=== PATIENT | male | born 1935 | race Caucasian/White ===

== ENCOUNTER 2017-03-24 15:00 | Emergency (ER) | payer OTHER ==
[~2017-03-24] VITALS: Ht 180.3 cm; Wt 68.3 kg
[~2017-03-24 15:00] MED LIST: ALBU-71 IH; CARV6.25 PO; DIGO0.121 PO; DONE10TA10 PO; FLUT1DSK2 IH; FORM1 IH; GABA300C PO; LOSA25TA14 PO; MEMA10TA PO; RIVA20TA PO; TIOT18CA2 IH
[2017-03-24 15:11] VITALS: BP 106/61
--- NOTE | 2017-03-24 17:56 | NUR ---
82/M PRESENT TO ER C/O HERNIA PAIN x TODAY. PAIN 8/10 DULL NON-RADIATING. PT STATES HE WAS TAKING OTC TYLENOL PRIOR TO ER VISIT. HX: LUNG CA 18 MONTHS AGO, HERNIA 18 MONTHS DENIES N/V/D; SKIN IS PINK/WARM/DRY; AAOX4 WITH EVEN AND STEADY GAIT; LUNGS CLEAR BL; HR EVEN AND REGULAR; PT DENIES ANY FEVER, CP, SOB, OR COUGH AT THIS TIME; PATIENT STATES PAIN OF 8/10 AT THIS TIME; VSS; PATIENT POSITIONED FOR COMFORT; HOB ELEVATED; BEDRAILS UP X2; BED DOWN. ER MD MADE AWARE OF PT STATUS.
[2017-03-24 18:39] LABS: BASOPHILS # (AUTO) 0.1 K/uL (0.00-0.22); EOSINOPHILS # (AUTO) 0.2 K/uL (0-0.4); EOSINOPHILS % (AUTO) 3.2 % (0.0-4.0); HEMATOCRIT 30.8 % (36-52); HEMOGLOBIN 9.9 g/dL (12.0-18.0); LYMPHOCYTES # (AUTO) 0.7 K/uL (2.0-11.5); MEAN CORPUSCULAR HEMOGLOBIN 27 pg (27-31); MEAN CORPUSCULAR HGB CONC 32 g/dL (33-37); MEAN CORPUSCULAR VOLUME 84 fL (80-94); MONOCYTES # (AUTO) 0.5 K/uL (0.8-1.0); MONOCYTES % (AUTO) 7.3 % (1.7-9.3); NEUTROPHILS # (AUTO) 4.7 K/uL (1.8-7.7); NEUTROPHILS % (AUTO) 77.5 % (42.2-75.2); PLATELET COUNT (AUTO) 156 K/uL (140-450); RED BLOOD CELL COUNT(AUTO) 3.68 MIL/uL (4.20-6.10); RED CELL DISTRIBUTION WIDTH 14.4 % (11.6-13.7); WHITE BLOOD COUNT (AUTO) 6.2 K/uL (4.8-10.8)
--- NOTE | 2017-03-24 18:58 | NUR ---
Patient discharged with v/s stable. Written and verbal after care instructions given and explained. Patient alert, oriented and verbalized understanding of instructions. Ambulatory with to car. All questions addressed prior to discharge. ID band removed. Patient advised to follow up with PMD. Rx of PERCOCET given. Patient educated on indication of medication including possible reaction and side effects. Opportunity to ask questions provided and answered.
[2017-03-24 18:59] VITALS: BP 124/72
[2017-03-24 19:17] LABS: ANION GAP 12.8 (8-16); ASPARTATE AMINOTRANSFERASE 15 U/L (15-37); CARBON DIOXIDE 31.6 mmol/L (21-32); CHLORIDE 105 mmol/L (98-107); CREATININE 1.2 mg/dL (0.7-1.3); GLUCOSE 101 mg/dL (74-106); POTASSIUM 4.4 mmol/L (3.5-5.1); SODIUM SERUM 145 mmol/L (136-145); TOTAL BILIRUBIN 1.1 mg/dL (0.0-1.0); UREA NITROGEN, BLOOD 30 mg/dL (7-18)
[2017-03-24 19:18] LABS: ALBUMIN 3.3 g/dL (3.4-5.0)
== END 2017-03-24 18:59 | disposition home or self-care (01) ==
LOC: MED 15:00
DX: K40.90 Unilateral inguinal hernia, without obstruction or gangrene, not specified as recurrent (principal); C34.90 Malignant neoplasm of unspecified part of unspecified bronchus or lung; Z88.6 Allergy status to analgesic agent; Z88.5 Allergy status to narcotic agent; Z88.2 Allergy status to sulfonamides; J44.9 Chronic obstructive pulmonary disease, unspecified; I10 Essential (primary) hypertension
CPT/HCPCS: 36415; 80053; 83605; 84484; 85025; 85610; 85730; 99285

== ENCOUNTER 2017-03-25 17:20 | Inpatient (IN) | payer OTHER ==
[~2017-03-25] VITALS: Ht 177.8 cm; Wt 70.3 kg
[2017-03-25 17:24] VITALS: BP 143/109
--- NOTE | 2017-03-25 17:27 | NUR ---
Patient ambulated to bed 04.
--- NOTE | 2017-03-25 17:53 | NUR ---
Dr. Lugo evaluating patient at bedside.
--- NOTE | 2017-03-25 17:58 | NUR ---
XRAY at bedside.
--- NOTE | 2017-03-25 18:00 | NUR ---
PT BIB FAMILY FOR EVALUATION OF SOB AND URINARY RETENTION. HX OF CA, COPD, INGUINAL HERNIA. PT STATES HE GOT LOWER ABDOMINAL PAIN. DENIES N/V/D; SKIN IS PINK/WARM/DRY; AAOX4 WITH EVEN AND STEADY GAIT; LUNGS CLEAR BL; HR EVEN AND REGULAR; PT DENIES ANY FEVER, CP OR COUGH AT THIS TIME; PATIENT POSITIONED FOR COMFORT; HOB ELEVATED; BEDRAILS UP X2; BED DOWN. ALL MONITORS IN PLACED;ER MD MADE AWARE OF PT STATUS.
[2017-03-25 18:06] LABS: BASOPHILS # (AUTO) 0.1 K/uL (0.00-0.22); BASOPHILS % (AUTO) 0.7 % (0.0-2.0); EOSINOPHILS # (AUTO) 0.1 K/uL (0-0.4); EOSINOPHILS % (AUTO) 1.6 % (0.0-4.0); HEMATOCRIT 30.6 % (36-52); LYMPHOCYTES # (AUTO) 0.6 K/uL (2.0-11.5); LYMPHOCYTES % (AUTO) 6.9 % (20.5-51.1); MEAN CORPUSCULAR HEMOGLOBIN 27 pg (27-31); MEAN CORPUSCULAR HGB CONC 33 g/dL (33-37); MEAN CORPUSCULAR VOLUME 84 fL (80-94); MONOCYTES # (AUTO) 0.5 K/uL (0.8-1.0); MONOCYTES % (AUTO) 5.6 % (1.7-9.3); NEUTROPHILS # (AUTO) 7.1 K/uL (1.8-7.7); NEUTROPHILS % (AUTO) 85.2 % (42.2-75.2); PLATELET COUNT (AUTO) 146 K/uL (140-450); RED BLOOD CELL COUNT(AUTO) 3.66 MIL/uL (4.20-6.10); RED CELL DISTRIBUTION WIDTH 14.7 % (11.6-13.7); WHITE BLOOD COUNT (AUTO) 8.4 K/uL (4.8-10.8)
--- NOTE | 2017-03-25 18:27 | NUR ---
PER DAUGHTER,PATIENT BEEN HAVING BLOODY URINE X1 WEEK AND DIFFICULTY VOIDING. PROSTATE OPERATION LAST NOVEMBER . ATTEMPTED TO INSERT FLEMING CATH. WITH DIFFICULTY AND HESITATION WITH SMALL BLEEDING/CLOTS. ERMD MADE AWARE
[2017-03-25 18:29] LABS: PROTHROMBIN TIME 16.5 secs (10.8-13.4)
[2017-03-25 18:46] LABS: ALBUMIN 3.6 g/dL (3.4-5.0); ANION GAP 12.8 (8-16); ASPARTATE AMINOTRANSFERASE 21 U/L (15-37); CARBON DIOXIDE 28.8 mmol/L (21-32); CHLORIDE 103 mmol/L (98-107); CREATININE 1.1 mg/dL (0.7-1.3); GLUCOSE 116 mg/dL (74-106); POTASSIUM 4.6 mmol/L (3.5-5.1); SODIUM SERUM 140 mmol/L (136-145); UREA NITROGEN, BLOOD 40 mg/dL (7-18)
--- NOTE | 2017-03-25 19:00 | NUR ---
DR. LANE ATTEMPTED TO INSERT FLEMING CATH.WITH DIFFICULTY/HESITATION. WILL CONSULT UROLOGIST.
[2017-03-25] MEDS ORDERED: LEVOFLOXACIN 750 MG/D5W PREMIX 150 ML IV ONE (19:25)
--- NOTE | 2017-03-25 19:28 | NUR ---
DR. LANE SPOKE TO PATIENT AND DAUGHTER RE: URO. CONSULT
--- NOTE | 2017-03-25 19:38 | NUR ---
Pt report given to ABDIAS ROOT. Transfer of care at this time.
--- NOTE | 2017-03-25 19:40 | NUR ---
GOT REPORT FROM ABDIAS HATCH. PT. RESTING IN BED, NO S/SX OF DISTRESS AT THIS TIME.
[2017-03-25] MEDS ORDERED: MORPHINE SULFATE 4 MG/ML SYR IVP ONE (20:05)
[2017-03-25] MEDS ORDERED: NACL 0.9% 1,000 ML IV SCH (20:09)
[2017-03-25] MEDS ORDERED: DOCUSATE SODIUM 100 MG GELCAP PO PRN (20:10)
[2017-03-25] MEDS ORDERED: ONDANSETRON 4 MG/2 ML VIAL IM/IVP PRN (20:10)
[2017-03-25] MEDS ORDERED: MORPHINE SULFATE 2 MG/ML SYR IVP PRN (20:10)
--- NOTE | 2017-03-25 20:40 | NUR ---
HOLD THE PT. AT ER AWAITING FOR ROOM AVAILABLE.
--- NOTE | 2017-03-25 20:42 | NUR ---
ARRIVED TO GIVE HHN AND PATIENT STILL IN ER. MENTIONED TO DR. LYLE THAT BID TREATMENTS ARE GIVEN AT 0700 AND 1900, HE STATED HE WILL CHANGE THE ORDER
[2017-03-25] MEDS ORDERED: NON-FORMULARY ITEM (Mometasone/Formoterol (Dulera 200 Mcg/5 Mcg Inhaler) 2 PUFF) IH SCH (21:00)
[2017-03-25] MEDS ORDERED: GABAPENTIN 300 MG CAP PO SCH (21:00)
[2017-03-25] MEDS ORDERED: ALBUTEROL 0.083% 2.5 MG/3 ML NEBU INH SCH (21:00)
[2017-03-25] MEDS ORDERED: DONEPEZIL 10 MG TAB PO SCH (21:00)
[2017-03-25] MEDS ORDERED: NON-FORMULARY ITEM (Fluticasone/Salmeterol* (Advair 250-50 Diskus*) 1 PUFF) IH SCH (21:00)
--- NOTE | 2017-03-25 22:20 | NUR ---
Patient will be admitted to care of DR. HUERTA. Admited to TELEMETRY. Will go to [id number]. Belongings list completed. Report to ABDIAS ALCAZAR.
--- NOTE | 2017-03-25 23:00 | NUR ---
PT ARRIVED TO [facility] [[email or web address] VIA GURNEY FROM ER. PT IS AWAKE AND ALERT, ORIENTED X4. DAUGHTER IS AT THE BEDSIDE. SHOWING NO SIGN SOF ACUTE DISTRESS. URINAL AT THE BEDSIDE. IV ACCESS ASYMPTOMATIC AND PATENT. ON 02 2L VIA MT, AMBULATORY WITH ASSISTIVE DEVICE, WALKER AT THE BEDSIDE. PLAN OF CARE DISCUSSED, PT VERBALIZED UNDERSTANDING. BED ON LOW POSITION, BILATERAL HALF SIDE RAILS UP, CALL LIGHT WITH IN REACH, WILL CONTINUE TO MONITOR.
[2017-03-25 23:15] VITALS: BP 121/73
[2017-03-25] MEDS: CARVEDILOL 6.25 MG TAB PO SCH (23:20)
--- NOTE | 2017-03-25 23:21 | NUR ---
PT AND PT DAUGHTER ESTRELLITA REFUSED MEDICATION, DAUGHTER STATES GABAPENTIN 300MG HAD ALREADY BEEN GIVEN AT 0800 PM WITH PT OWN MEDICATION, DID NOT ADMINISTER ANOTHER DOSE DUE TO IT BEING TO CLOSE IN TIME. BENEFITS AND RISKS EXPLAINED, PT REFUSED.
[2017-03-25 23:25] LABS: APPEARANCE,URINE TURBID (CLEAR); BILIRUBIN,URINE 2+ (NEGATIVE); BLOOD, URINE 3+ (NEGATIVE); COLOR,URINE RED (YELLOW); LEUKOCYTE ESTERASE ,URINE 3+ (NEGATIVE); NITRITE, URINE POSITIVE (NEGATIVE); PH,URINE 7.5 (5.0-9.0); UGLUCOSE TRACE (NEGATIVE)
[2017-03-25 23:26] LABS: CHOL/HDL RATIO 3.1 (1-4.5); FREE T4 (FREE THYROXINE) 1.19 ng/dL (0.76-1.46); MAGNESIUM 1.8 mg/dL (1.8-2.4); PHOSPHORUS 3.3 mg/dL (2.5-4.9); THYROID STIMULATING HORMONE 1.64 uIU/mL (0.34-3.74)
[2017-03-26 00:06] LABS: RBC,URINE TOO NUMEROUS TO COUN /HPF (0-5); WBC,URINE TOO MANY TO COUNT /HPF (0-5)
--- NOTE | 2017-03-26 02:20 | NUR ---
PT COMPLAINING OF BURNING FEELING WHEN TRYING TO URINATE. DR WARD MADE AWARE OF PT SYMPTOMS, PER DR WARD ADMINISTER ATIVAN. NOTED, WILL CARRY OUT.
[2017-03-26] MEDS ORDERED: LORazepam 1 MG TAB PO SCH (03:25)
[2017-03-26] MEDS ORDERED: ALBUTEROL SULFATE/IPRATROPIU 3 ML SOL IH PRN (03:40)
[2017-03-26 04:00] VITALS: BP 138/76
--- NOTE | 2017-03-26 04:11 | NUR ---
PT IS COMPLAINING OF PAIN AND BURNING WHEN TRYING TO URINATE, PT IS STILL UNABLE TO URINATE. DR WARD NOTIFIED OF PT SYMPTOMS. PER DR WARD, ORDER TO DO A BLADDER SCAN.
--- NOTE | 2017-03-26 04:13 | NUR ---
BLADDER SCAN RESULTS, 706 ML.
--- NOTE | 2017-03-26 04:40 | NUR ---
PT COMPLAIN OF BLADDER PAIN WITH BURNING SENSATION. DR. WARD MADE AWARE, AND ORDERED MORPHINE TO BE GIVEN. MORPHINE HAS BEEN GIVEN TO MANAGE PAIN. PT TOLERATED WELL. WILL CONTINUE TO MONITOR.
--- NOTE | 2017-03-26 05:30 | NUR ---
UROLOGIST, DR MCCLURE IS WITH PT IN THE ROOM FOR CONSULT.
[2017-03-26] MEDS ORDERED: LIDOCAINE 1% 500 MG/50 ML VIAL INJ SCH (05:50)
[2017-03-26] MEDS ORDERED: LIDOCAINE 1% 50 ML ONE (05:59)
[2017-03-26 06:30] LABS: HEMATOCRIT 29.2 % (36-52); HEMOGLOBIN 9.5 g/dL (12.0-18.0); MEAN CORPUSCULAR HEMOGLOBIN 27 pg (27-31); MEAN CORPUSCULAR HGB CONC 33 g/dL (33-37); MEAN CORPUSCULAR VOLUME 84 fL (80-94); PLATELET COUNT (AUTO) 127 K/uL (140-450); RED BLOOD CELL COUNT(AUTO) 3.48 MIL/uL (4.20-6.10); RED CELL DISTRIBUTION WIDTH 14.6 % (11.6-13.7); WHITE BLOOD COUNT (AUTO) 8.2 K/uL (4.8-10.8)
[2017-03-26 06:43] LABS: ANION GAP 12.3 (8-16); CARBON DIOXIDE 27.7 mmol/L (21-32); CHLORIDE 104 mmol/L (98-107); CREATININE 1.1 mg/dL (0.7-1.3); GLUCOSE 87 mg/dL (74-106); SODIUM SERUM 140 mmol/L (136-145)
[2017-03-26] MEDS ORDERED: ALBUTEROL 0.083% 2.5 MG/3 ML NEBU INH SCH (07:12)
[2017-03-26 07:26] LABS: UREA NITROGEN, BLOOD 33 mg/dL (7-18)
[2017-03-26 08:00] VITALS: BP 154/99
--- NOTE | 2017-03-26 08:00 | NUR ---
RECEIVED REPORT FROM ABDIAS ALCAZAR. PATIENT ALERT AWAKE ORIENTED X4, NOT IN ACUTE DISTRESS NOTED. VITALS TAKEN. OBSERVED NPO FOR PROCEDURE TODAY. MD AT BEDSIDE. C/O OF LOWER ABDOMINAL PAIN, MEDICATED BY ABDIAS ALCAZAR. WILL CONTINUE TO MONITOR.
[2017-03-26 08:15] LABS: EOSINOPHILS % (MANUAL) 2 % (0-4); LYMPHOCYTES % (MANUAL) 3 % (20-46); MONOCYTES % (MANUAL) 2 % (5-12)
--- NOTE | 2017-03-26 08:27 | NUR ---
DR. MCCLURE, JOSE AND OR NURSE CAME AND EXPLAINED PROCEDURE TO PT.. DR. MCCLURE SPOKE TO RESIDENTS MD ON BEDSIDE.
--- NOTE | 2017-03-26 08:30 | NUR ---
PATIENT OFF FLOOR, WENT TO SURGERY, IN STABLE CONDITION.
--- NOTE | 2017-03-26 08:30 | NUR ---
Patient's Plan of Care was discussed and reviewed with REGIONAL BUSINESS DEVELOPMENT MANAGER: BERENICE
[2017-03-26] MEDS ORDERED: SEVOFLURANE 250 ML BTL INH ONE (08:45)
[2017-03-26] MEDS ORDERED: fentaNYL 0.05 MG/ML VIAL ONE (08:58)
[2017-03-26] MEDS ORDERED: MIDAZOLAM 2 MG/2 ML VIAL ONE (08:58)
[2017-03-26] MEDS ORDERED: MEMANTINE 10 MG TAB PO SCH (09:00)
[2017-03-26] MEDS ORDERED: RIVAROXABAN 10 MG TAB PO SCH (09:00)
[2017-03-26] MEDS: CARVEDILOL 6.25 MG TAB PO SCH (09:00)
[2017-03-26] MEDS ORDERED: TIOTROPIUM BROMIDE IH SCH (09:00)
[2017-03-26] MEDS ORDERED: LACTOBACILLUS RHAMNOSUS GG 1 EACH CAP PO SCH (09:00)
[2017-03-26] MEDS ORDERED: LOSARTAN 25 MG TAB PO SCH (09:00)
[2017-03-26] MEDS ORDERED: DIGOXIN 0.125 MG TAB PO SCH (09:00)
[2017-03-26] MEDS ORDERED: NACL 0.9% 1,000 ML IV SCH (09:48)
[2017-03-26] MEDS ORDERED: diphenhydrAMINE 50 MG/ML VIAL IVP PRN (09:50)
[2017-03-26] MEDS ORDERED: ONDANSETRON 4 MG/2 ML VIAL IVP PRN (09:50)
--- NOTE | 2017-03-26 10:02 | NUR ---
PATIENT HAS BEEN SCREENED AND CATEGORIZED HIGH NUTRITION RISK. PATIENT WILL BE SEEN WITHIN 1-2 DAYS OF ADMISSION. 03/26/17-03/27/[address]
--- NOTE | 2017-03-26 10:20 | NUR ---
BACK FROM OR VIA GURNEY. AWAKE, ALERT, AND ORIENTED X4. NO C/O PAIN. EXPLAINED POST-OP CARE, PAIN MANAGEMENT TEACHING, USE OF CALL LIGHT/BED/TV/BATHROOM. VERBALIZED UNDERSTANDING. CALL LIGHT WITHIN REACH.
[2017-03-26 10:30] VITALS: BP 103/65
[2017-03-26 11:00] VITALS: BP 112/76
--- NOTE | 2017-03-26 11:20 | NUR ---
FAXED INITIAL REVIEW TO [facility], IPA [phone] PHONE IBETH [phone]. I SPOKE WITH IBETH AND GAVE VERBAL REPORT ALSO. SHE ASKED IF PATIENT IS STABLE FOR TRANSFER TO [facility]. I CALLED DR. STEWART AND SHE WILL LET ME KNOW.
--- NOTE | 2017-03-26 11:20 | NUR ---
DR. STEWART WENT INSIDE PT. ROOM AND SPOKE TO PT. AND PT. DAUGHTER -LINDSAY.
[2017-03-26] MEDS ORDERED: [UNRECOGNIZED DRUG - CODE] IV (11:50)
[2017-03-26] MEDS ORDERED: DEXT150S13 IV (11:50)
[2017-03-26] MEDS ORDERED: LACT10CA PO (11:50)
[2017-03-26] MEDS ORDERED: TAMS0.4C96 PO (11:51)
[2017-03-26 12:00] VITALS: BP 103/58
[2017-03-26] MEDS ORDERED: CLINDAMYCIN 600 MG in DEXTROSE 5% 50 ML IV SCH (12:00)
--- NOTE | 2017-03-26 13:05 | NUR ---
03/26/17 RD INITIAL ASSESSMENT COMPLETED PLEASE REFER TO NUTRITION ASSESSMENT UNDER CARE ACTIVITY FOR ESTIMATED NUTRITIONAL NEEDS. 1. CONTINUE CARDIAC DIET 2. RD TO FOLLOW-UP 2-3 DAYS, HIGH RISK [address]
--- NOTE | 2017-03-26 14:28 | NUR ---
RECEIVED A CALL FROM HILDA RUIZ CM FROM [facility]. THE PATIENT WILL TO [facility] [address] [place] [address] OLSON[address] ROOM 3319 CALL REPORT TO [phone]. TRANSPORT WITH [facility]. SANDRA [id number] SB. PATIENT TO GO TO TELE BED. DR. STEWART AWARE. SUNITA CALEROPHOTOGRAMMETRIC ENGINEER NURSE AWARE.
--- NOTE | 2017-03-26 14:30 | NUR ---
EXPLAINED PT. AND ABOUT MD D/C ORDER, D/C INSTRUCTIONS AND TEACHING, DIAGNOSIS, PAIN MANAGEMENT TEACHING, 3 WAY FLEMING IRRIGATION, SUPRAPUBIC CATHETER CARE, PAIN MANAGEMENT TEACHING, MD FOLLOW-UP, MD PRESCRIPTION LIST EDUCATION, DIET. VERBALIZED UNDERSTANDING.
--- NOTE | 2017-03-26 14:50 | NUR ---
CALLED PT. DAUGHTER -LINDSAY AND INFORMED OF PT. TRANSFER TO [facility] PER MD ORDER. PT. DAUGHTER -LINDSAY VERBALIZED UNDERSTANDING.
--- NOTE | 2017-03-26 16:10 | NUR ---
D/C VIA GURNEY WITH [facility]. AWAKE, ALERT, AND ORIENTED X4. IN STABLE CONDITION. ENDORSED TO [facility] ABOUT [address] FLEMING CATHETER CONTINUOS IRRIGATION. INFORMED CHARGE NURSE ROSALBA IRVING.
[2017-03-26 18:00] VITALS: BP 103/63
== END 2017-03-26 16:10 | disposition short-term general hospital (02) | DRG 871 ==
LOC: MED 17:20 → MTU 20:01
PROVIDERS: ADMIT Family Medicine Sports Medicine; ATTEND Family Medicine Sports Medicine
PROC: 0TCB8ZZ Extirpation of Matter from Bladder, Via Natural or Artificial Opening Endoscopic (ICD-10-PCS; principal; 2017-03-26 09:00)
DX: A41.9 Sepsis, unspecified organism (principal); N17.0 Acute kidney failure with tubular necrosis; J69.0 Pneumonitis due to inhalation of food and vomit; F03.90 Unspecified dementia, unspecified severity, without behavioral disturbance, psychotic disturbance, mood disturbance, and anxiety; C34.11 Malignant neoplasm of upper lobe, right bronchus or lung; N39.0 Urinary tract infection, site not specified; J44.1 Chronic obstructive pulmonary disease with (acute) exacerbation; D64.9 Anemia, unspecified; I10 Essential (primary) hypertension; I48.91 Unspecified atrial fibrillation; R33.9 Retention of urine, unspecified; Z96.659 Presence of unspecified artificial knee joint; N40.0 Benign prostatic hyperplasia without lower urinary tract symptoms; R31.9 Hematuria, unspecified; F17.200 Nicotine dependence, unspecified, uncomplicated; Z85.118 Personal history of other malignant neoplasm of bronchus and lung; Z88.6 Allergy status to analgesic agent; Z88.2 Allergy status to sulfonamides; Z88.8 Allergy status to other drugs, medicaments and biological substances
CPT/HCPCS: 36415; 71010; 76770; 80048; 80053; 81001; 82150; 83036; 83605; 83690; 83735; 83880; 84100; 84436; 84439; 84443; 84479; 84484; 85025; 85610; 85730; 87040; 87081; 87086; 93005; 96365; 96375; 99285; C1758; C1769; J1956; J2001; J2250; J2270; J3010; J3490; J7030; J7060; J7613; Q0092; Q0163

== ENCOUNTER 2017-05-12 13:07 | Inpatient (IN) | payer OTHER ==
[~2017-05-12] VITALS: Ht 180.3 cm; Wt 72.6 kg
[~2017-05-12 13:07] MED LIST changes: +DEXT150S13 IV; +LACT10CA PO; +TAMS0.4C96 PO; +[UNRECOGNIZED DRUG - CODE] IV
[2017-05-12 13:25] VITALS: BP 135/71
--- NOTE | 2017-05-12 13:40 | NUR ---
82/M BIB DAUGHTER FROM [facility] C/O R KNEE SWELLING & REDNESS X 2 WKS.HX OF DEMENTIA,,COPD, AFIB, PROSTATE PROBLEM RETAINED CATH; URINE CLOUDY,JALIL KNEE REPALCEMENT. DENIES N/V/D; AAOX4 WITH EVEN AND UNSTEADY GAIT, AMB WITH WALKER.; LUNGS CLEAR BL; PT DENIES ANY FEVER, CP, SOB, OR COUGH AT THIS TIME; PATIENT STATES PAIN OF 8/10 AT THIS TIME; PATIENT POSITIONED FOR COMFORT; R LEG ELEVATED, BEDRAILS UP X2; ER MD MADE AWARE OF PT STATUS.
[2017-05-12] MEDS ORDERED: cefTRIAXone 1,000 MG VIAL ONE (14:55)
[2017-05-12] MEDS ORDERED: ONDANSETRON 4 MG/2 ML VIAL IVP PRN (14:55)
[2017-05-12 15:15] LABS: BASOPHILS # (AUTO) 0.1 K/uL (0.00-0.22); BASOPHILS % (AUTO) 0.8 % (0.0-2.0); EOSINOPHILS # (AUTO) 0.1 K/uL (0-0.4); EOSINOPHILS % (AUTO) 1.4 % (0.0-4.0); HEMOGLOBIN 10.4 g/dL (12.0-18.0); LYMPHOCYTES # (AUTO) 0.4 K/uL (2.0-11.5); LYMPHOCYTES % (AUTO) 5.8 % (20.5-51.1); MEAN CORPUSCULAR HEMOGLOBIN 27 pg (27-31); MEAN CORPUSCULAR HGB CONC 32 g/dL (33-37); MEAN CORPUSCULAR VOLUME 84 fL (80-94); MONOCYTES # (AUTO) 0.6 K/uL (0.8-1.0); MONOCYTES % (AUTO) 7.8 % (1.7-9.3); NEUTROPHILS % (AUTO) 84.2 % (42.2-75.2); PLATELET COUNT (AUTO) 104 K/uL (140-450); RED BLOOD CELL COUNT(AUTO) 3.83 MIL/uL (4.20-6.10); RED CELL DISTRIBUTION WIDTH 17.3 % (11.6-13.7); WHITE BLOOD COUNT (AUTO) 7.2 K/uL (4.8-10.8)
--- NOTE | 2017-05-12 15:25 | NUR ---
Patient will be admitted to care of DR RUIZ. Admited to TELE. Will go to room 121A. Belongings list completed. Report to ABDIAS WU.
[2017-05-12 15:30] LABS: ANION GAP 9.3 (8-16); CARBON DIOXIDE 31.2 mmol/L (21-32); CHLORIDE 105 mmol/L (98-107); CREATININE 1.1 mg/dL (0.7-1.3); GLUCOSE 135 mg/dL (74-106); POTASSIUM 4.5 mmol/L (3.5-5.1); SODIUM SERUM 141 mmol/L (136-145); UREA NITROGEN, BLOOD 24 mg/dL (7-18)
[2017-05-12 15:36] LABS: ALBUMIN 3.3 g/dL (3.4-5.0); ASPARTATE AMINOTRANSFERASE 24 U/L (15-37); TOTAL BILIRUBIN 1.9 mg/dL (0.0-1.0)
[2017-05-12 15:38] VITALS: BP 127/61
--- NOTE | 2017-05-12 15:38 | NUR ---
RECEIVED PT FROM ER. AWAKE. ALERT ORIENTEDX4. ASSISTED BY ER STAFF. TRANSFERRED TO BED SAFELY AND COMFORTABLY. NO SOB NOTED. DENIES ANY PAIN OR DISCOMFORT AT THIS TIME. PT ON BEDREST. SCARS ON BOTH RIGHT AND LEFT KNEE NOTED. PT ON BEDREST. FLEMING CATHETER IN PLACE. NO OUTPUT NOTED ON DRAINAGE BAG. SAFETY PRECAUTION IN PLACE. CALL LIGHT WITHIN REACH.
[2017-05-12 15:40] LABS: PROTHROMBIN TIME 15.1 secs (10.8-13.4)
[2017-05-12 15:58] LABS: APPEARANCE,URINE SL CLOUDY (CLEAR); BILIRUBIN,URINE NEGATIVE (NEGATIVE); BLOOD, URINE 3+ (NEGATIVE); COLOR,URINE YELLOW (YELLOW); LEUKOCYTE ESTERASE ,URINE 2+ (NEGATIVE); NITRITE, URINE POSITIVE (NEGATIVE); UGLUCOSE NEGATIVE (NEGATIVE)
[2017-05-12 15:58] LABS: CHOL/HDL RATIO 2.6 (1-4.5); FREE T4 (FREE THYROXINE) 1.23 ng/dL (0.76-1.46); PHOSPHORUS 3.1 mg/dL (2.5-4.9); THYROID STIMULATING HORMONE 1.87 uIU/mL (0.34-3.74)
[2017-05-12] MEDS: NACL 0.9% 1,000 ML IV SCH (16:11)
--- NOTE | 2017-05-12 17:05 | NUR ---
DR GRAHAM CAME TO SEE PT AND DISCUSSED WITH DAUGHTER ESTRELLITA REGARDING CODE STATUS. PER DAUGHTER NO CHESTY COMPRESSIONS, NO INTUBATION, OK TO SHOCK, OK TO BIPAP.
[2017-05-12 17:24] LABS: RBC,URINE 20-50 /HPF (0-5); WBC,URINE TOO MANY TO COUNT /HPF (0-5)
[2017-05-12] MEDS ORDERED: ALBUTEROL SULFATE/IPRATROPIU 3 ML SOL IH PRN (17:25)
[2017-05-12] MEDS ORDERED: IPRATROPIUM 0.02% 0.5 MG/2.5 ML NEBU INH PRN (17:25)
[2017-05-12] MEDS ORDERED: ALBUTEROL 0.083% 2.5 MG/3 ML NEBU INH PRN (17:25)
[2017-05-12] MEDS ORDERED: oxyCODONE/APAP 5/325 MG 1 TAB TAB PO PRN (17:55)
[2017-05-12] MEDS ORDERED: ASCO500T45 PO (18:11)
[2017-05-12] MEDS ORDERED: TAMS0.4C96 PO (18:11)
[2017-05-12] MEDS ORDERED: FERR325E14 PO (18:11)
--- NOTE | 2017-05-12 18:45 | NUR ---
CALLED PHARMACY REGARDING PENDING PAIN MEDICATION. CLARIFIED WITH DR. GRAHAM REGARDING ORDERED TRAMADOL AND PERCOCET SINCE PT IS ALLERGIC TO HYDROCODONE. PER DR. GRAHAM PER DAUGHTER ESTRELLITA REPORT PT TAKES TRAMADOL AT [facility]. TO DC PERCOCET.
[2017-05-12] MEDS: traMADol 50 MG TAB PO PRN (18:52)
--- NOTE | 2017-05-12 18:52 | NUR ---
PT VERBALIZED HE HAS PAIN OF 6/10 ON RIGHT KNEE. MEDICATED PRN TRAMADOL. REASSESSMENT ENDORSED TO NEXT SHIFT.
[2017-05-12] MEDS ORDERED: ALBUTEROL SULFATE/IPRATROPIU 3 ML SOL IH SCH (19:00)
--- NOTE | 2017-05-12 19:02 | NUR ---
PT KEPT CLEAN, DRY AND COMFORTABLE, NEEDS ATTENDED, WILL ENDORSED TO NEXT SHIFT. PT ON STABLE CONDITION. FOR CONTINUITY OF CARE.
--- NOTE | 2017-05-12 19:10 | NUR ---
RECEIVED PT ON BED AAOX4, VITAL SIGNS STABLE, NO SOB NOTED, JUST FINISHED WITH US OF RT KNEE, MEDICATED BY AM NURSE EARLIER FOR PAIN, VERBALIZED PAIN SUBSIDING, IVF INFUSING WELL, PLAN OF CARE DISCUSSED, SAFETY MEASURES IN PLACE, CALL LIGHT WITHIN REACH.
[2017-05-12 20:00] VITALS: BP 103/58
[2017-05-12] MEDS: DOCUSATE SODIUM 100 MG GELCAP PO SCH (20:35)
[2017-05-12] MEDS: GABAPENTIN 300 MG CAP PO SCH (20:36)
[2017-05-12] MEDS: CARVEDILOL 6.25 MG TAB PO SCH (20:41)
--- NOTE | 2017-05-12 20:45 | NUR ---
DUE PO MEDICATION ADMINISTERED, OFFERED SNACK BUT PT SAID "I'M STEFFANIE", ALL NEEDS ATTENDED.
[2017-05-12] MEDS ORDERED: NON-FORMULARY ITEM (Fluticasone/Salmeterol* (Advair 250-50 Diskus*) 1 PUFF) IH SCH (21:00)
[2017-05-12] MEDS ORDERED: DONEPEZIL 10 MG TAB PO SCH (21:00)
[2017-05-12] MEDS ORDERED: NON-FORMULARY ITEM (Mometasone/Formoterol (Dulera 200 Mcg/5 Mcg Inhaler) 2 PUFF) IH SCH (21:00)
[2017-05-13] VITALS: BP 132/69
--- NOTE | 2017-05-13 | NUR ---
PT SLEEPING, EASILY AROUSABLE, VITAL SIGNS STABLE, DENIES ANY PAIN, NO SOB NOTED, IVF INFUSING WELL, CONTINUE TO MONITOR CLOSELY.
[2017-05-13 04:00] VITALS: BP 129/72
--- NOTE | 2017-05-13 04:00 | NUR ---
PT SLEEPING, EASILY AROUSABLE, VITAL SIGNS STABLE, A-FIB ON TELE WITH HIGH 50'S RATE, ASYMPTOMATIC, NO SIGNS OF SOB, DENIES ANY PAIN, MONITORED CLOSELY.
[2017-05-13 06:11] LABS: BASOPHILS % (AUTO) 0.5 % (0.0-2.0); EOSINOPHILS # (AUTO) 0.1 K/uL (0-0.4); EOSINOPHILS % (AUTO) 2.7 % (0.0-4.0); HEMATOCRIT 27.7 % (36-52); HEMOGLOBIN 8.9 g/dL (12.0-18.0); LYMPHOCYTES # (AUTO) 0.5 K/uL (2.0-11.5); LYMPHOCYTES % (AUTO) 10.5 % (20.5-51.1); MEAN CORPUSCULAR HEMOGLOBIN 27 pg (27-31); MEAN CORPUSCULAR HGB CONC 32 g/dL (33-37); MEAN CORPUSCULAR VOLUME 85 fL (80-94); MONOCYTES # (AUTO) 0.5 K/uL (0.8-1.0); MONOCYTES % (AUTO) 11.1 % (1.7-9.3); NEUTROPHILS # (AUTO) 3.6 K/uL (1.8-7.7); NEUTROPHILS % (AUTO) 75.2 % (42.2-75.2); PLATELET COUNT (AUTO) 81 K/uL (140-450); RED BLOOD CELL COUNT(AUTO) 3.25 MIL/uL (4.20-6.10); WHITE BLOOD COUNT (AUTO) 4.7 K/uL (4.8-10.8)
[2017-05-13] MEDS: traMADol 50 MG TAB PO PRN (06:19)
--- NOTE | 2017-05-13 06:20 | NUR ---
PT COMPLAINING OF RT KNEE PAIN, MEDICATED PRN WITH TRAMADOL, AWAITING DR RAMÍREZ FOR ORTHO CONSULT, MONITORED CLOSELY.
[2017-05-13 06:38] LABS: ANION GAP 9.4 (8-16); CARBON DIOXIDE 29.3 mmol/L (21-32); CHLORIDE 108 mmol/L (98-107); CREATININE 0.9 mg/dL (0.7-1.3); GLUCOSE 90 mg/dL (74-106); POTASSIUM 3.7 mmol/L (3.5-5.1); SODIUM SERUM 143 mmol/L (136-145); UREA NITROGEN, BLOOD 19 mg/dL (7-18)
[2017-05-13 06:46] LABS: PHOSPHORUS 3.3 mg/dL (2.5-4.9)
--- NOTE | 2017-05-13 07:18 | NUR ---
DECREASED FIO2 FROM 3L N/C TO 2L N/C SPO2 100
--- NOTE | 2017-05-13 07:25 | NUR ---
PT AWAKE, NO SIGNS OF DISTRESS, REPORT GIVEN TO RN MATTY FOR CONTINUITY OF CARE.
--- NOTE | 2017-05-13 07:30 | NUR ---
RECEIVED PT AAOX4. NO SOB NOTED. NO C/O PAIN AT THIS TIME. IV TO LT AC PATENT AND INTACT. CHEST CLEAR. ABDOMEN SOFT, BOWEL SOUNDS PRESENT. WITH FLEMING MODERATE AMOUNTS OF WOLFGANG URINE. RT KNEE SWOLLEN, ELEVATED WITH PILLOW. INSTRUCTED PT TO CALL FOR ASSISTANCE, CALL LIGHT WITHIN REACH. PT VERBALIZED UNDERSTANDING. DR. RAMÍREZ AT THE BEDSIDE.
[2017-05-13] MEDS ORDERED: LACTOBACILLUS RHAMNOSUS GG 1 EACH CAP PO SCH (09:00)
[2017-05-13] MEDS ORDERED: MEMANTINE 10 MG TAB PO SCH (09:00)
[2017-05-13] MEDS ORDERED: TIOTROPIUM BROMIDE IH SCH (09:00)
[2017-05-13] MEDS ORDERED: TAMSULOSIN 0.4 MG CAP PO SCH (09:00)
[2017-05-13] MEDS ORDERED: LOSARTAN 25 MG TAB PO SCH (09:00)
[2017-05-13] MEDS ORDERED: DIGOXIN 0.125 MG TAB PO SCH (09:00)
[2017-05-13 09:07] VITALS: BP 122/77
--- NOTE | 2017-05-13 09:53 | NUR ---
PATIENT HAS BEEN SCREENED AND CATEGORIZED MODERATE NUTRITION RISK. PATIENT WILL BE SEEN WITHIN 3-5 DAYS OF ADMISSION. 05/15/17-05/17/[address]
[2017-05-13] MEDS: DOCUSATE SODIUM 100 MG GELCAP PO SCH ×2 (10:13→20:18)
[2017-05-13] MEDS: CARVEDILOL 6.25 MG TAB PO SCH (10:14)
--- NOTE | 2017-05-13 10:32 | NUR ---
CM NOTE: INITIAL REVIEW FAXED TO [facility] [phone] ATTN: IBETH # [phone]. SPOKE WITH IBETH OF [facility] PH# [phone] AND SHE SAID THAT PATIENT'S INSURANCE/IPA GRP WANTS TO TRANSFER PATIENT TO CONTRACTED FACILITY. DR. GRAHAM AWARE. PATIENT AWARE AND AGREEABLE.
[2017-05-13] MEDS: NACL 0.9% 1,000 ML IV SCH (11:03)
--- NOTE | 2017-05-13 11:47 | NUR ---
CM NOTE PER DR. TELLO, THE TENTATIVE DISCHARGE PLAN IS FOR PATIENT TO HAVE ASPIRATION OF KNEE TODAY AND POSSIBLE DISCHARGE TO SNF FOR IV ANTIBIOTICS TOMORROW. IBETH OF [facility] PH# [phone] AWARE AND PER IBETH, IF THE PLAN IS TO DISCHARGE THE PATIENT TOMORROW THEY WILL NOT TRANSFER PATIENT TO CONTRACTED FACILITY ANYMORE.
[2017-05-13 12:00] VITALS: BP 122/74
[2017-05-13] MEDS ORDERED: ETHYL CHLORIDE 105 ML SPR TP SCH (12:35)
--- NOTE | 2017-05-13 13:00 | NUR ---
RT KNEE ASPIRATION DONE DR. RAMÍREZ AT THE BEDSIDE. ASPIRATED 70 MLS OF SERO SANG FLUID ON RT KNEE. AFFECTED KNEE WRAPPED WITH POLI BANDAGED BY . SPECIMEN SENT TO LAB.
--- NOTE | 2017-05-13 13:37 | NUR ---
Patient will be transfer to [facility] when bed available.
--- NOTE | 2017-05-13 14:54 | NUR ---
CM NOTE PER IBETH OF [facility] PH# [phone], PATIENT GOING TO [facility] [place] RM 1318 BED 2, ACCEPTING DR. Jigna PETERSON, NUMBER TO CALL FOR REPORT PH# [phone]. PER IBETH, TO USE [facility] FOR TRANSPORT AND IF [facility] WILL NOT TAKE PATIENT, TO USE [facility], AUTH# [id number]. SPOKE WITH MADHU OF [facility] PH# [phone] AND HE SAID THEY CAN'T TAKE PATIENT BECAUSE THEY DON'T SERVICE THE [place]. SPOKE WITH MARIO OF [facility] PH# [phone] TO SET UP ALS TRANSPORT, PATIENT ON O2 NC, GOING TO [facility] RM 1318 BED 2, CANCER PROGRAM COORDINATOR TIME 1929. DR. GRAHAM, CHARGE NURSE SUNITA, NURSE MATTY JIMENEZ.
[2017-05-13 16:00] VITALS: BP_SYST 122; BP_SYST 129; BP_DIAS 60; BP_DIAS 74
[2017-05-13] MEDS ORDERED: SALMETEROL IH (16:04)
[2017-05-13] MEDS ORDERED: FLUTICASONE IH (16:04)
[2017-05-13] MEDS ORDERED: ACET-2619 PO (16:14)
[2017-05-13] MEDS ORDERED: IPRA3AMP IH (16:14)
[2017-05-13] MEDS ORDERED: TRAM50TA3 PO (16:14)
[2017-05-13] MEDS ORDERED: ONDA2SOL45 IVP (16:14)
[2017-05-13] MEDS ORDERED: TAMS0.4C96 PO (16:14)
[2017-05-13] MEDS ORDERED: LACT10CA PO (16:14)
[2017-05-13] MEDS ORDERED: DOCU-299 PO (16:14)
[2017-05-13] MEDS ORDERED: CEFT1SOL1 IV (16:25)
[2017-05-13] MEDS ORDERED: FLUT1DSK2 IH (16:32)
[2017-05-13] MEDS ORDERED: RIVAROXABAN 10 MG TAB PO SCH (17:00)
--- NOTE | 2017-05-13 17:00 | NUR ---
PT'S DAUGHTERS CALIXTO AND ESTRELLITA NOTIFIED REGARDING THE TRANSFER. VERBALIZED UNDERSTANDING.
--- NOTE | 2017-05-13 18:20 | NUR ---
REPORT GIVEN TO MYKEL, AT [facility] TEL#[phone], EXT [phone].
--- NOTE | 2017-05-13 19:01 | NUR ---
PT AWAKE, WATCHING TV. NO COMPLAINTS MADE. WILL ENDORSE TO NEXT SHIFT NURSE TO CONTINUE THE TRANSFER PROCESS TO CONTRACTED FACILITY. PT WILL BE PICKED UP BY [facility] AT 1930 HRS.
--- NOTE | 2017-05-13 19:15 | NUR ---
RECEIVED REPORT FROM DAY RN. PATIENT RESTING IN BED, AWAKE ALERT ORIENTED X4. NO S/S OF DISTRESS NOTED, RESPIRATION EVEN AND UNLABORED, ON O2 NC 2L. IV PATENT AND INTACT, FLEMING IN PLACE, DRAINING URINE BY GRAVITY. CALL LIGHT WITHIN REACH, SAFETY MEASURE ENSURED, WILL CONTINUE TO MONITOR.
[2017-05-13 20:00] VITALS: BP 114/62
[2017-05-13] MEDS: GABAPENTIN 300 MG CAP PO SCH (20:18)
--- NOTE | 2017-05-13 20:20 | NUR ---
DUE MEDICATION GIVEN, PATIENT TOLERATED WELL. NO S/S OF DISTRESS NOTED, WELL CONTINUE TO MONITOR.
--- NOTE | 2017-05-13 20:37 | NUR ---
RUMA FROM [facility] CALLED AND SAID THAT THEY ARE BACKLOGGED AND EARLIEST TIME THEY CAN IRON WORKER THE PT IS AT MIDNIGHT, CALLED [facility] AND TALKED TO ISIDRA AND MADE AWARE OF NEW IRON WORKER TIME, HE SAID "THAT'S FINE", ABDIAS HANNA IS AWARE.
--- NOTE | 2017-05-13 20:50 | NUR ---
PT'S DAUGHTER ESTRELLITA CALLED, VERY UPSET ABOUT PT'S DELAYED TRANSFER TIME TO [facility], EXPLAINED TO HER THE REASON DUE TO [facility] BEING BACKLOGGED, WANTS THE PT TO STAY HERE AND NOT BE TRANSFERRED TONIGHT, EXPLAINED TO HER THE REASON FOR TRANSFER TO CONTRACTED FACILITY WAS DUE TO INSURANCE REASON, STILL VERY UPSET, TOLD HER THAT I WILL BRING THIS UP TO RESIDENT ON DUTY TONIGHT AND GIVE HER A CALL BACK, DR ERAZO UPDATED ON THE SITUATION, SHE WILL CALL AND TALK TO PT'S DAUGHTER, WILL FOLLOW UP.
--- NOTE | 2017-05-13 21:40 | NUR ---
DR ERAZO CAME TO THE STATION, SHE TALKED TO PT'S DAUGHTER ESTRELLITA ALREADY, NO CHANGE IN ORDER AT THIS TIME.
--- NOTE | 2017-05-13 22:05 | NUR ---
PATIENT IS SLEEPING AT THIS TIME, BUT EASY TO AROUSE. NO S/S OF DISTRESS NOTED, RESPIRATION EVEN AND UNLABORED, CALL LIGHT WITHIN REACH, SAFETY MEASURE ENSURED, WILL CONTINUE TO MONITOR.
[2017-05-14] VITALS: BP 118/75
[2017-05-14] MEDS: traMADol 50 MG TAB PO PRN (00:49)
--- NOTE | 2017-05-14 00:50 | NUR ---
PATIENT STATED, PAIN 12/07, INFORMED PATIENT [facility] ALREADY HERE TO PICK HIM UP, PATIENT STILL ASKED FOR PAIN MEDICATION. CHARGE NURSE SEAN SAID," IT'S OKAY TO GIVE. PAIN MEDICATION." MEDICATION ADMINISTERED, WILL GIVE REPORT TO TOMASZ FROM [facility].
--- NOTE | 2017-05-14 01:05 | NUR ---
[facility] COME TO PICK THE PATIENT UP. PATIENT IS IN STABLE CONDITION. RESPIRATION EVEN AND UNLABORED. REPORT GIVEN TO TOMASZ FROM [facility]. [facility]
--- NOTE | 2017-05-14 14:49 | NUR ---
PATIENT ADMITTED IN PATIENT TO [facility] ON FRIDAY MAY 12, 2017. REPORT GIVEN TO [facility].
== END 2017-05-14 01:15 | disposition short-term general hospital (02) | DRG 564 ==
LOC: MED 13:07 → MTU 15:11
PROVIDERS: ADMIT Family Medicine; ATTEND Family Medicine
PROC: 0S9C3ZX Drainage of Right Knee Joint, Percutaneous Approach, Diagnostic (ICD-10-PCS; principal; 2017-05-13)
DX: M25.461 Effusion, right knee (principal); N17.0 Acute kidney failure with tubular necrosis; C34.90 Malignant neoplasm of unspecified part of unspecified bronchus or lung; E44.1 Mild protein-calorie malnutrition; E83.51 Hypocalcemia; I48.91 Unspecified atrial fibrillation; J44.9 Chronic obstructive pulmonary disease, unspecified; E87.8 Other disorders of electrolyte and fluid balance, not elsewhere classified; D53.9 Nutritional anemia, unspecified; N39.0 Urinary tract infection, site not specified; J98.11 Atelectasis; F02.80 Dementia in other diseases classified elsewhere, unspecified severity, without behavioral disturbance, psychotic disturbance, mood disturbance, and anxiety; I10 Essential (primary) hypertension; E11.9 Type 2 diabetes mellitus without complications; G30.9 Alzheimer's disease, unspecified; E80.6 Other disorders of bilirubin metabolism; B19.20 Unspecified viral hepatitis C without hepatic coma; Z96.653 Presence of artificial knee joint, bilateral; Z96.612 Presence of left artificial shoulder joint; Z88.6 Allergy status to analgesic agent; Z88.2 Allergy status to sulfonamides; Z79.01 Long term (current) use of anticoagulants; Z99.81 Dependence on supplemental oxygen; Z68.22 Body mass index [BMI] 22.0-22.9, adult
CPT/HCPCS: 36415; 71010; 73562; 76536; 80048; 80053; 81001; 82150; 82550; 82553; 83605; 83690; 83735; 83880; 84100; 84439; 84443; 84484; 85025; 85610; 85651; 85730; 86140; 87040; 87070; 87075; 87081; 87086; 87186; 87205; 93005; 96365; 99285; J0696; J7030; J7060; J7620; Q0092

== ENCOUNTER 2017-06-27 21:13 | Inpatient (IN) | payer OTHER ==
[~2017-06-27] VITALS: Ht 180.3 cm; Wt 74.4 kg
[~2017-06-27 21:13] MED LIST changes: +ACET-2619 PO; -ALBU-71 IH; +ASCO500T45 PO; -CARV6.25 PO; +CEFT1SOL1 IV; -DEXT150S13 IV; +DOCU-299 PO; -DONE10TA10 PO; +FERR325E14 PO; +FLUTICASONE IH; -FORM1 IH; +IPRA3AMP IH; -LOSA25TA14 PO; +ONDA2SOL45 IVP; +SALMETEROL IH; +TRAM50TA3 PO; -[UNRECOGNIZED DRUG - CODE] IV
--- NOTE | 2017-06-27 21:26 | NUR ---
Patient BIBA ACLS, transferred to bed 3. RN evaluating patient at bedside.
[2017-06-27 21:37] VITALS: BP 154/79
--- NOTE | 2017-06-27 21:37 | NUR ---
82 Y/O M MARLON TURPIN W/C/O RESP DISTRESS AND COUGH X 2 DAYS. PER EMS ALBUTAROL TX GIVEN ON ROUTE X 1. MED HX COPD, SMALL CELL CANCER, HTN, A FIB. ER MADE AWARE.
[2017-06-27] MEDS ORDERED: ALBUTEROL SULFATE/IPRATROPIU 3 ML SOL IH ONE (21:40)
--- NOTE | 2017-06-27 21:47 | NUR ---
Respiratory therapist at bedside for breathing treatment administration and ABG acquisition.
--- NOTE | 2017-06-27 22:09 | NUR ---
X-RAY AT BEDSIDE.
[2017-06-27 22:11] LABS: BASOPHILS # (AUTO) 0.1 K/uL (0.00-0.22); BASOPHILS % (AUTO) 1.3 % (0.0-2.0); EOSINOPHILS # (AUTO) 0.1 K/uL (0-0.4); EOSINOPHILS % (AUTO) 1.9 % (0.0-4.0); HEMATOCRIT 35.3 % (36-52); LYMPHOCYTES # (AUTO) 0.6 K/uL (2.0-11.5); LYMPHOCYTES % (AUTO) 9.9 % (20.5-51.1); MEAN CORPUSCULAR HEMOGLOBIN 26 pg (27-31); MEAN CORPUSCULAR HGB CONC 31 g/dL (33-37); MEAN CORPUSCULAR VOLUME 82 fL (80-94); MONOCYTES # (AUTO) 0.6 K/uL (0.8-1.0); MONOCYTES % (AUTO) 8.8 % (1.7-9.3); NEUTROPHILS # (AUTO) 5.2 K/uL (1.8-7.7); NEUTROPHILS % (AUTO) 78.1 % (42.2-75.2); PLATELET COUNT (AUTO) 117 K/uL (140-450); RED BLOOD CELL COUNT(AUTO) 4.31 MIL/uL (4.20-6.10); WHITE BLOOD COUNT (AUTO) 6.6 K/uL (4.8-10.8)
[2017-06-27 22:25] LABS: PROTHROMBIN TIME 11.7 secs (10.8-13.4)
--- NOTE | 2017-06-27 22:42 | NUR ---
PT RESTING IN BED, VSS, FAMILY AT BEDSIDE.
[2017-06-27 22:52] LABS: ALBUMIN 3.5 g/dL (3.4-5.0); ANION GAP 8.2 (8-16); ASPARTATE AMINOTRANSFERASE 20 U/L (15-37); CARBON DIOXIDE 31.1 mmol/L (21-32); CHLORIDE 103 mmol/L (98-107); CREATININE 1.1 mg/dL (0.7-1.3); GLUCOSE 132 mg/dL (74-106); POTASSIUM 4.3 mmol/L (3.5-5.1); SODIUM SERUM 138 mmol/L (136-145); TOTAL BILIRUBIN 0.8 mg/dL (0.0-1.0); UREA NITROGEN, BLOOD 29 mg/dL (7-18)
--- NOTE | 2017-06-28 00:33 | NUR ---
FLU SWAB COLLECTED
[2017-06-28] MEDS: NACL 0.9% 1,000 ML IV SCH (01:03)
[2017-06-28] MEDS ORDERED: traMADol 50 MG TAB PO PRN (01:05)
[2017-06-28] MEDS ORDERED: ONDANSETRON 4 MG/2 ML VIAL IVP PRN (01:05)
[2017-06-28] MEDS ORDERED: ACETAMINOPHEN 325 MG TAB PO PRN (01:05)
[2017-06-28 01:19] LABS: APPEARANCE,URINE HAZY (CLEAR); BILIRUBIN,URINE NEGATIVE (NEGATIVE); BLOOD, URINE 3+ (NEGATIVE); COLOR,URINE YELLOW (YELLOW); LEUKOCYTE ESTERASE ,URINE 1+ (NEGATIVE); NITRITE, URINE POSITIVE (NEGATIVE); UGLUCOSE NEGATIVE (NEGATIVE)
--- NOTE | 2017-06-28 01:26 | NUR ---
PT TRANSFERED TO FLOOR VIA GURNEY. MONITOR IN BED, NO S/S OF DISTRESS NOTED DURING TRANSFER.
--- NOTE | 2017-06-28 01:28 | NUR ---
Patient will be admitted to care of DR FENG. Admited to TELEMETRY. Will go to room 116. Belongings list completed. Report to ABDIAS STALEY AT BEDSIDE.
[2017-06-28 01:39] LABS: BARBITURATE, URINE NEG. ng/ml (NEG <=200); BENZODIAZEPINE, URINE NEG. ng/mL (NEG <=200); CANNABINOID, URINE NEG. ng/mL (NEG <=50); COCAINE, URINE NEG. ng/mL (NEG <=300); OPIATE, URINE NEG. ng/mL (NEG <=2000); PHENCYCLIDINE SCREEN,URINE NEG. ng/mL (NEG <=25)
[2017-06-28 01:43] LABS: RBC,URINE 11-20 (MOD) /HPF (0-5)
[2017-06-28 01:46] LABS: WBC,URINE 80-100 /HPF (0-5)
[2017-06-28 01:51] LABS: FREE T4 (FREE THYROXINE) 1.18 ng/dL (0.76-1.46); PHOSPHORUS 3.9 mg/dL (2.5-4.9); THYROID STIMULATING HORMONE 1.65 uIU/mL (0.34-3.74)
[2017-06-28 02:32] LABS: PROTHROMBIN TIME 11.4 secs (10.8-13.4)
[2017-06-28 02:58] VITALS: BP 144/77
[2017-06-28] MEDS: ALBUTEROL SULFATE/IPRATROPIU 3 ML SOL IH PRN ×2 (03:12→16:42)
[2017-06-28] MEDS: LEVOFLOXACIN 750 MG/D5W PREMIX 150 ML IV SCH (03:34)
[2017-06-28] MEDS ORDERED: CLINDAMYCIN 600 MG/4 ML VIAL ONE (05:48)
[2017-06-28] MEDS: CLINDAMYCIN 600 MG in DEXTROSE 5% 50 ML IV SCH ×3 (05:58→20:48)
--- NOTE | 2017-06-28 06:50 | NUR ---
PATIENT HAS BEEN SCREENED AND CATEGORIZED LOW NUTRITION RISK. PATIENT WILL BE SEEN WITHIN 7 DAYS OF ADMISSION. 07/04/17 DEBORAH RODRIGUEZ MS, RDN
--- NOTE | 2017-06-28 07:04 | NUR ---
PATIENT STABLE NO SHORT OF BREATH ON O2 AT 3L NASAL CANNULA . WILL PASS ON TO DAY SHIFT RN.
[2017-06-28 07:29] LABS: ANION GAP 10.1 (8-16); CARBON DIOXIDE 32.8 mmol/L (21-32); CHLORIDE 102 mmol/L (98-107); GLUCOSE 89 mg/dL (74-106); POTASSIUM 4.9 mmol/L (3.5-5.1); SODIUM SERUM 140 mmol/L (136-145); UREA NITROGEN, BLOOD 24 mg/dL (7-18)
--- NOTE | 2017-06-28 07:30 | NUR ---
RECEIVED PT ON BED AAO WITH PERIODS OF FORGETFULNESS. NO SOB NOTED, ON O2 AT 2LPM VIA NASAL CANNULA. IV TO RT AC PATENT AND INTACT. CHEST, DIMINISHED AIR ENTRY TO THE BASES, OTHERWISE CLEAR. ABDOMEN SOFT, BOWEL SOUNDS PRESENT. BILATERAL ANKLE SWELLING NOTED +1. BLE ELEVATED WHILE ON BED. INSTRUCTED PT TO CALL FOR ASSISTANCE, CALL LIGHT WITHIN REACH, PT VERBALIZED UNDERSTANDING.
--- NOTE | 2017-06-28 07:31 | NUR ---
LATE ENTRY: RECEIVED PT WITHOUT A FLEMING CATHETER IN PLACE, COMPUTER HELP DESK SPECIALIST STATED FLEMING WAS TAKEN OUT DURING THEIR SHIFT DUE TO CLOUDINESS NOTED ON THE CATHETER. PER COMPUTER HELP DESK SPECIALIST, THEY ATTEMPTED TO REINSERT FLEMING 2X BUT FAILED.
[2017-06-28 07:40] LABS: BASOPHILS % (AUTO) 0.7 % (0.0-2.0); EOSINOPHILS # (AUTO) 0.1 K/uL (0-0.4); EOSINOPHILS % (AUTO) 2.3 % (0.0-4.0); HEMOGLOBIN 10.5 g/dL (12.0-18.0); LYMPHOCYTES # (AUTO) 0.7 K/uL (2.0-11.5); LYMPHOCYTES % (AUTO) 11.7 % (20.5-51.1); MEAN CORPUSCULAR HEMOGLOBIN 26 pg (27-31); MEAN CORPUSCULAR HGB CONC 32 g/dL (33-37); MEAN CORPUSCULAR VOLUME 81 fL (80-94); MONOCYTES # (AUTO) 0.5 K/uL (0.8-1.0); MONOCYTES % (AUTO) 8.2 % (1.7-9.3); NEUTROPHILS # (AUTO) 4.3 K/uL (1.8-7.7); NEUTROPHILS % (AUTO) 77.1 % (42.2-75.2); PLATELET COUNT (AUTO) 108 K/uL (140-450); RED BLOOD CELL COUNT(AUTO) 4.06 MIL/uL (4.20-6.10); WHITE BLOOD COUNT (AUTO) 5.6 K/uL (4.8-10.8)
[2017-06-28 07:41] LABS: CHOL/HDL RATIO 2.7 (1-4.5); MAGNESIUM 1.9 mg/dL (1.8-2.4); PHOSPHORUS 3.8 mg/dL (2.5-4.9)
[2017-06-28] MEDS: ALBUTEROL SULFATE/IPRATROPIU 3 ML SOL IH SCH ×3 (07:57→19:00)
[2017-06-28 08:00] VITALS: BP 151/73
--- NOTE | 2017-06-28 08:30 | NUR ---
LATE ENTRY: SPOKE WITH PT REGARDING REINSERTING THE FLEMING BUT PT REFUSED AND STATED HE IS CONTINENT AND CAN URINATE IN THE URINAL. PT ACTUALLY VOIDED 300 MLS OF CLEAR SLIGHTLY WOLFGANG URINE STRAIGHT TO THE URINAL WITH NO PROBLEM.
[2017-06-28] MEDS: FERROUS SULFATE 325 MG TABEC PO SCH ×3 (09:00→17:33)
[2017-06-28] MEDS: DOCUSATE SODIUM 100 MG GELCAP PO SCH ×2 (09:00→20:48)
[2017-06-28] MEDS: LACTOBACILLUS RHAMNOSUS GG 1 EACH CAP PO SCH (09:33)
[2017-06-28] MEDS: ASCORBIC ACID 500 MG TAB PO SCH ×3 (09:35→17:33)
[2017-06-28] MEDS: MEMANTINE 10 MG TAB PO SCH (09:35)
[2017-06-28] MEDS: TAMSULOSIN 0.4 MG CAP PO SCH (09:35)
[2017-06-28] MEDS: DIGOXIN 0.125 MG TAB PO SCH (09:36)
[2017-06-28] MEDS: RIVAROXABAN 10 MG TAB PO SCH (09:37)
[2017-06-28 12:00] VITALS: BP 148/88
--- NOTE | 2017-06-28 15:45 | NUR ---
LINDA CANSECO FROM [facility] CALLED AND ASKED FOR THE STATUS OF PT IF PT IS TO BE DISCHARGE HOME TOMORROW THEN IT IS OKAY NOT TO TRANSFER PT TO CONTRACTED FACILITY. WILL NOTIFY ATTENDING.
[2017-06-28 16:00] VITALS: BP 130/82
--- NOTE | 2017-06-28 16:50 | NUR ---
SPOKE WITH DR. HUNTER, STATED THEY CAN TRANSFER PT TO CONTRACTED FACILITY IF THERE IS A BED AVAILABLE.
[2017-06-28] MEDS: methylPREDNISolone SS 125 MG/2 ML VIAL IVP SCH (17:34)
--- NOTE | 2017-06-28 18:00 | NUR ---
PT VOIDED FREELY IN THE URINAL TOTAL OF 1200 MLS FOR DAY SHIFT. LAST VOIDED URINE CLEAR WOLFGANG IN COLOR.
--- NOTE | 2017-06-28 19:00 | NUR ---
CALLED [facility] [phone]. AND SPOKE WITH YEISON REGARDING WHAT DR. HUNTER SAID, YEISON STATED THEY WILL FOLLOW UP WITH THE ATTENDING TOMORROW.
--- NOTE | 2017-06-28 19:30 | NUR ---
RECEIVED BEDSIDE REPORT FROM DAY SHIFT NURSE MATTY RN, PT STABLE, NO DISTRESS NOTED, IV TO THE R FA 20 G RUNNING NS @ 20ML/HR, INFUSING WELL, PT ON 3L O2 VIA NC, INITIAL ASSESSMENT DONE, ALL SAFETY PRECAUTION MET, CALL LIGHT WITHIN REACH, WILL CONTINUE TO MONITOR.
[2017-06-28 20:00] VITALS: BP 139/82
[2017-06-28] MEDS: GABAPENTIN 300 MG CAP PO SCH (20:48)
--- NOTE | 2017-06-28 20:48 | NUR ---
DUE MEDICATION GIVEN, PT TOLERATED WELL, PT STABLE, NO DISTRESS NOTED, CALL LIGHT WITHIN REACH, WILL CONTINUE TO MONITOR.
--- NOTE | 2017-06-28 21:05 | NUR ---
RECEIVED CALL FROM JACE FROM [facility], SHE STATED THAT THERE IS CURRENTLY NO BEDS FOR TELEMETRY PT.
--- NOTE | 2017-06-28 23:15 | NUR ---
PT PICKED UP TO GO TO CT VIA BED, PT STABLE, NO DISTRESS NOTED, CALL LIGHT WITHIN REACH , WILL CONTINUE TO MONITOR.
[2017-06-29] VITALS: BP 145/87
[2017-06-29] MEDS: NACL 0.9% 1,000 ML IV SCH (01:03)
[2017-06-29] MEDS: LEVOFLOXACIN 750 MG/D5W PREMIX 150 ML IV SCH (01:30)
[2017-06-29 04:00] VITALS: BP 138/85
[2017-06-29] MEDS: CLINDAMYCIN 600 MG in DEXTROSE 5% 50 ML IV SCH ×3 (05:19→20:09)
[2017-06-29] MEDS: ALBUTEROL SULFATE/IPRATROPIU 3 ML SOL IH SCH ×3 (06:52→18:43)
--- NOTE | 2017-06-29 07:30 | NUR ---
GAVE BEDSIDE REPORT TO DAY SHIFT NURSE BERE CALERO, PT STABLE, NO DISTRESS NOTED, ENDORSED PLAN OF CARE, CALL LIGHT WITHIN REACH.
--- NOTE | 2017-06-29 07:35 | NUR ---
RECEIVED REPORT FROM ASSISTANT PROPERTY MANAGER NURSE, PT IS RESTING IN BED, A/OX3, BEDREST, PT HAS IV ON HIS RIGHT FA, PATENT, INTACT, FLUSHING WELL, PT IS ON O2 2L NC, NO S/S OF RESPIRATORY DISTRESS OR DISCOMFORT NOTED, DISCUSSED PLAN OF CARE WITH PT, PT VERBALIZED UNDERSTANDING, SAFETY/FALL PRECAUTIONS ARE IN PLACE, CALL LIGHT IS WITHIN REACH, WILL CONTINUE TO MONITOR.
[2017-06-29 08:00] VITALS: BP 121/71
[2017-06-29 08:41] LABS: BASOPHILS % (AUTO) 0.7 % (0.0-2.0); EOSINOPHILS % (AUTO) 0.7 % (0.0-4.0); HEMATOCRIT 37.1 % (36-52); LYMPHOCYTES # (AUTO) 0.4 K/uL (2.0-11.5); LYMPHOCYTES % (AUTO) 5.9 % (20.5-51.1); MEAN CORPUSCULAR HEMOGLOBIN 26 pg (27-31); MEAN CORPUSCULAR HGB CONC 32 g/dL (33-37); MEAN CORPUSCULAR VOLUME 81 fL (80-94); MONOCYTES # (AUTO) 0.2 K/uL (0.8-1.0); MONOCYTES % (AUTO) 3.8 % (1.7-9.3); NEUTROPHILS # (AUTO) 5.5 K/uL (1.8-7.7); NEUTROPHILS % (AUTO) 88.9 % (42.2-75.2); PLATELET COUNT (AUTO) 132 K/uL (140-450); RED BLOOD CELL COUNT(AUTO) 4.61 MIL/uL (4.20-6.10); RED CELL DISTRIBUTION WIDTH 16.9 % (11.6-13.7); WHITE BLOOD COUNT (AUTO) 6.1 K/uL (4.8-10.8)
[2017-06-29 09:38] LABS: ANION GAP 12.1 (8-16); CARBON DIOXIDE 31.4 mmol/L (21-32); CHLORIDE 99 mmol/L (98-107); CREATININE 1.1 mg/dL (0.7-1.3); GLUCOSE 111 mg/dL (74-106); POTASSIUM 4.5 mmol/L (3.5-5.1); SODIUM SERUM 138 mmol/L (136-145); UREA NITROGEN, BLOOD 21 mg/dL (7-18)
[2017-06-29] MEDS: FERROUS SULFATE 325 MG TABEC PO SCH ×3 (09:40→17:13)
[2017-06-29] MEDS: MEMANTINE 10 MG TAB PO SCH (09:40)
[2017-06-29] MEDS: ASCORBIC ACID 500 MG TAB PO SCH ×3 (09:40→17:13)
[2017-06-29] MEDS: TAMSULOSIN 0.4 MG CAP PO SCH (09:40)
[2017-06-29] MEDS: methylPREDNISolone SS 125 MG/2 ML VIAL IVP SCH ×2 (09:41→20:09)
[2017-06-29] MEDS: DIGOXIN 0.125 MG TAB PO SCH (09:41)
--- NOTE | 2017-06-29 09:41 | NUR ---
DUE MEDICATIONS GIVEN, PT TOLERATED WELL, CALL LIGHT IS WITHIN REACH.
[2017-06-29] MEDS: LACTOBACILLUS RHAMNOSUS GG 1 EACH CAP PO SCH (09:48)
[2017-06-29] MEDS: RIVAROXABAN 10 MG TAB PO SCH (09:48)
[2017-06-29] MEDS: DOCUSATE SODIUM 100 MG GELCAP PO SCH ×2 (09:49→20:08)
[2017-06-29] MEDS: MUPIROCIN 2% OINT 22 GM TUBE TP SCH (10:13)
[2017-06-29] MEDS: CHLORHEXADINE GLUC 2% CLOTH TP SCH (10:14)
--- NOTE | 2017-06-29 11:40 | NUR ---
PT RESTING IN BED WATCHING TV, CALL LIGHT WITHIN REACH.
[2017-06-29 12:00] VITALS: BP 142/92
--- NOTE | 2017-06-29 12:30 | NUR ---
RECEIVED PHONE CALL FROM PATIENT'S DAUGHTER ESTRELLITA, SHE SAID SHE WAS CALLING TO FOLLOW UP AND FIND OUT IF THE HER DAD WAS GOING TO BE DISCHARGED TODAY OR NOT. I TOLD ESTRELLITA I WAS GOING TO TALK TO THE CHARGE NURSE AND ATTENDING DOCTOR TO FOLLOW UP ON WHAT THE PLAN WAS AND I WOULD GIVE HER A CALL BACK. I ASKED ESTRELLITA FOR HER PHONE NUMBER, SHE SAID IT WAS THE PHONE NUMBER THAT WAS ON FILE ON THE PATIENT'S FACE SHEET.
--- NOTE | 2017-06-29 12:45 | NUR ---
I SPOKE TO DR. GILLESPIE, I LET HIM KNOW THE PATIENT'S DAUGHTER HAD CALLED TO CHECK STATUS ON DISCHARGE PLANNING, PER DR. GILLESPIE IF PATIENT IS DISCHARGED HE WILL GO TO [facility] IF PATIENT'S DAUGHTER WANTED HIM TO STAY THAN IT WOULD HAVE TO BE PAID OUT OF POCKET.
--- NOTE | 2017-06-29 12:50 | NUR ---
CALLED THE PATIENT'S DAUGHTER ESTRELLITA AT THE PHONE NUMBER ON PATIENT'S FACE SHEET [phone] BUT IT IS NOT A WORKING NUMBER.
--- NOTE | 2017-06-29 13:20 | NUR ---
I SPOKE TO DR. GILLESPIE, I LET HIM KNOW THE PATIENT'S DAUGHTER HAD CALLED TO CHECK STATUS ON DISCHARGE PLANNING, PER DR. GILLESPIE IF PATIENT IS DISCHARGED HE WILL GO TO [facility] IF PATIENT'S DAUGHTER WANTED HIM TO STAY THAN IT WOULD HAVE TO BE PAID OUT OF POCKET. Addendum: 06/29/17 at 1323 by Tiffany Pimentel RN WRONG TIME ENTRY. SPOKE TO DOCTOR [id number].
--- NOTE | 2017-06-29 14:48 | NUR ---
RECEIVED PHONE CALL FROM PATIENT'S DAUGHTER ESTRELLITA, SHE GAVE ME HER NEW NUMBER . I LET HER KNOW THE ATTENDING DOCTORS WERE DOING THEIR ROUNDS AT THIS TIME AND THERE WAS NO DISCHARGE ORDER YET. ESTRELLITA SAID SHE WOULD CALL BACK AROUND 1830 TO CHECK AND SEE IF HE WAS GOING TO BE DISCHARGED OR NOT. ESTRELLITA SAID IF THE PATIENT HAD TO BE DISCHARGED TO [facility] THAT WOULD BE FINE BUT WOULD PREFER FOR PT NOT TO BE DISCHARGED THEIR.
[2017-06-29 16:00] VITALS: BP 125/77
--- NOTE | 2017-06-29 18:21 | NUR ---
PT IS RESTING IN BED WATCHING TV, CALL LIGHT IS WITHIN REACH.
--- NOTE | 2017-06-29 18:40 | NUR ---
DECREASED OXYGEN FROM 3LPM TO 2LPM SAO2 IS 95-96% RR 16 HR 77, NO RESP. DISTRESS NOTED
--- NOTE | 2017-06-29 19:20 | NUR ---
ENDORSED PT TO LIBRARY MEDIA TECHNICIAN NURSE FOR CONTINUITY OF CARE. PT STABLE AT THIS TIME.
--- NOTE | 2017-06-29 19:21 | NUR ---
RECEIVED BEDSIDE REPORT FROM DAY SHIFT NURSE BERE RN, PT STABLE, NO DISTRESS NOTED, ON 2LPM O2, IV TO R FA RUNNING NS @ 20ML/HR, C/O DISCOMFORT IN THE BACK, INITIAL ASSESSMENT DONE, ALL SAFETY PRECAUTION MET, WILL CONTINUE TO MONITOR.
[2017-06-29 20:00] VITALS: BP 126/81
[2017-06-29] MEDS: GABAPENTIN 300 MG CAP PO SCH (20:09)
--- NOTE | 2017-06-29 20:09 | NUR ---
DUE MEDICATION GIVEN, PT TOLERATED WELL, PT STABLE, NO S/S OF DISTRESS WILL CONTINUE TO MONITOR.
[2017-06-29] MEDS ORDERED: traZODone 50 MG TAB PO PRN (23:15)
--- NOTE | 2017-06-29 23:46 | NUR ---
PT C/O NOT BEING ABLE TO SLEEP, MEDICATION GIVEN, PT TOLERATED WELL, NO DISTRESS NOTED, CALL LIGHT WITHIN REACH,WILL CONTINUE TO MONITOR.
[2017-06-30] VITALS: BP 138/71
[2017-06-30] MEDS: NACL 0.9% 1,000 ML IV SCH (01:03)
[2017-06-30] MEDS: LEVOFLOXACIN 750 MG/D5W PREMIX 150 ML IV SCH (01:59)
--- NOTE | 2017-06-30 01:59 | NUR ---
DUE MEDICATION GIVEN, PT TOLERATED WELL, NO DISTRESS NOTED, CALL LIGHT WITHIN REACH, WILL CONTINUE TO MONITOR.
[2017-06-30 04:00] VITALS: BP 125/70
[2017-06-30] MEDS: CLINDAMYCIN 600 MG in DEXTROSE 5% 50 ML IV SCH ×2 (05:20→12:30)
--- NOTE | 2017-06-30 05:20 | NUR ---
DUE MEDICATION GIVEN, PT TOLERATED WELL, NO S/S OF DISTRESS, PT STABLE, CALL LIGHT WITHIN REACH, WILL CONTINUE TO MONITOR.
--- NOTE | 2017-06-30 07:05 | NUR ---
RECEIVED PATIENT REPORT AT BEDSIDE. PATIENT AWAKE AND ALERT. NO S/S OF DISTRESS NOTED. PATIENT ON 2L O2. NO SOB. NO C/O PAIN AT THIS TIME. IV ON THE RIGHT FOREARM INTACT WITH IVF INFUSING WELL. PATIENT ON TELE MONITORING. BED LOWERED WITH CALL LIGHT WITHIN REACH. WILL CONTINUE TO MONITOR.
--- NOTE | 2017-06-30 07:19 | NUR ---
GAVE BEDSIDE REPORT TO DAY SHIFT NURSE LUIS MANUEL RN, ENDORSED PLAN OF CARE, PT STABLE, NO DISTRESS NOTED, CALL LIGHT WITHIN REACH.
[2017-06-30 07:34] LABS: HEMOGLOBIN 10.6 g/dL (12.0-18.0); MEAN CORPUSCULAR HEMOGLOBIN 26 pg (27-31); MEAN CORPUSCULAR HGB CONC 32 g/dL (33-37); MEAN CORPUSCULAR VOLUME 80 fL (80-94); PLATELET COUNT (AUTO) 135 K/uL (140-450); RED BLOOD CELL COUNT(AUTO) 4.14 MIL/uL (4.20-6.10); RED CELL DISTRIBUTION WIDTH 16.6 % (11.6-13.7); WHITE BLOOD COUNT (AUTO) 8.3 K/uL (4.8-10.8)
[2017-06-30 07:53] LABS: MAGNESIUM 2.1 mg/dL (1.8-2.4); PHOSPHORUS 4.3 mg/dL (2.5-4.9)
[2017-06-30 08:00] VITALS: BP 126/78
[2017-06-30 08:09] LABS: LYMPHOCYTES % (MANUAL) 4 % (20-46); MONOCYTES % (MANUAL) 3 % (5-12)
[2017-06-30 08:19] LABS: ANION GAP 9.9 (8-16); CARBON DIOXIDE 30.5 mmol/L (21-32); CHLORIDE 101 mmol/L (98-107); GLUCOSE 142 mg/dL (74-106); POTASSIUM 4.4 mmol/L (3.5-5.1); SODIUM SERUM 137 mmol/L (136-145); UREA NITROGEN, BLOOD 27 mg/dL (7-18)
[2017-06-30] MEDS: ALBUTEROL SULFATE/IPRATROPIU 3 ML SOL IH SCH ×2 (08:19→13:40)
[2017-06-30] MEDS: DOCUSATE SODIUM 100 MG GELCAP PO SCH (09:29)
[2017-06-30] MEDS: ASCORBIC ACID 500 MG TAB PO SCH ×3 (09:29→17:10)
[2017-06-30] MEDS: FERROUS SULFATE 325 MG TABEC PO SCH ×3 (09:29→17:10)
[2017-06-30] MEDS: TAMSULOSIN 0.4 MG CAP PO SCH (09:29)
[2017-06-30] MEDS: methylPREDNISolone SS 125 MG/2 ML VIAL IVP SCH (09:29)
[2017-06-30] MEDS: DIGOXIN 0.125 MG TAB PO SCH (09:29)
[2017-06-30] MEDS: MEMANTINE 10 MG TAB PO SCH (09:30)
--- NOTE | 2017-06-30 09:30 | NUR ---
ADMINISTERED DUE MEDS. PATIENT TOLERATED WELL
[2017-06-30] MEDS: MUPIROCIN 2% OINT 22 GM TUBE TP SCH (09:35)
[2017-06-30] MEDS: RIVAROXABAN 10 MG TAB PO SCH (09:35)
[2017-06-30] MEDS: LACTOBACILLUS RHAMNOSUS GG 1 EACH CAP PO SCH (09:36)
[2017-06-30] MEDS: CHLORHEXADINE GLUC 2% CLOTH TP SCH (10:00)
[2017-06-30 12:00] VITALS: BP 126/66
--- NOTE | 2017-06-30 13:00 | NUR ---
PATIENT ASLEEP IN BED. NO S/S OF DISTRESS NOTED
[2017-06-30 16:00] VITALS: BP 133/74
[2017-06-30] MEDS ORDERED: SULF-58 PO (16:16)
[2017-06-30] MEDS ORDERED: FLOR250 PO (16:17)
[2017-06-30] MEDS ORDERED: PRED20TA6 PO (16:20)
--- NOTE | 2017-06-30 17:59 | NUR ---
SPOKE TO MADINA FROM [facility] AND GAVE PATIENT REPORT
--- NOTE | 2017-06-30 18:45 | NUR ---
PATIENT DISCHARGED TO [facility]. PATIENT PICKED UP BY DAUGHTER. DISCHARGE INSTRUCTIONS AND DISCHARGE PRESCRIPTIONS GIVEN. PATIENT VERBALIZED UNDERSTANDING. IV LINE DISCONTINUED. TELE LEADS TAKEN OFF. PATIENT LEFT WITH ALL HIS BELONGINGS AND DISCHARGE PAPERS. PATIENT LEFT IN STABLE CONDITION
--- NOTE | 2017-07-02 08:13 | NUR ---
RETRO REVIEW ER REPORT, H&P, CONSULT AND DISCHARGE FAXED TO [facility] [phone] PHONE [phone] [facility]
== END 2017-06-30 18:45 | disposition home or self-care (01) | DRG 177 ==
LOC: MED 21:13 → MTU 06-28 00:40
PROVIDERS: ADMIT Student in an Organized Health Care Education/Training Program; ATTEND Student in an Organized Health Care Education/Training Program
DX: J69.0 Pneumonitis due to inhalation of food and vomit (principal); J96.01 Acute respiratory failure with hypoxia; N17.0 Acute kidney failure with tubular necrosis; G93.41 Metabolic encephalopathy; I48.91 Unspecified atrial fibrillation; D64.9 Anemia, unspecified; E11.9 Type 2 diabetes mellitus without complications; J44.1 Chronic obstructive pulmonary disease with (acute) exacerbation; R64 Cachexia; N39.0 Urinary tract infection, site not specified; G89.29 Other chronic pain; N40.0 Benign prostatic hyperplasia without lower urinary tract symptoms; I10 Essential (primary) hypertension; F03.90 Unspecified dementia, unspecified severity, without behavioral disturbance, psychotic disturbance, mood disturbance, and anxiety; Z85.118 Personal history of other malignant neoplasm of bronchus and lung; Z92.21 Personal history of antineoplastic chemotherapy; Z92.3 Personal history of irradiation; Z96.659 Presence of unspecified artificial knee joint; Z88.1 Allergy status to other antibiotic agents; Z88.8 Allergy status to other drugs, medicaments and biological substances
CPT/HCPCS: 36415; 36600; 71010; 71250; 80048; 80053; 80162; 80305; 81001; 82803; 83036; 83605; 83735; 83880; 84100; 84439; 84443; 84484; 85025; 85610; 85730; 87040; 87081; 87086; 87186; 87804; 93005; 94640; 99285; J1956; J2930; J3490; J7030; J7060; J7620; Q0092